=== PATIENT | male | born 1965 | race Two or more races ===

== ENCOUNTER → 2018-04-19 | Outpatient (CLI) | payer OTHER | END | disposition home or self-care (01) | LOC: SPEC 09:09 → EEVIPCON 09:09 | PROVIDERS: ATTEND Nurse Practitioner Family | DX: I26.92 Saddle embolus of pulmonary artery without acute cor pulmonale (principal) | CPT/HCPCS: 36415; 85610 ==

== ENCOUNTER → 2018-05-24 | Outpatient (CLI) | payer OTHER | END | disposition home or self-care (01) | LOC: SPEC 08:39 → EEVIPCON 08:39 | PROVIDERS: ATTEND Nurse Practitioner Family | DX: I26.92 Saddle embolus of pulmonary artery without acute cor pulmonale (principal) | CPT/HCPCS: 36415; 85610 ==

== ENCOUNTER → 2018-06-21 | Outpatient (CLI) | payer OTHER | END | disposition home or self-care (01) | LOC: SPEC 09:08 → EEVIPCON 09:08 | PROVIDERS: ATTEND Nurse Practitioner Family | DX: I26.92 Saddle embolus of pulmonary artery without acute cor pulmonale (principal) | CPT/HCPCS: 36415; 85610 ==

== ENCOUNTER → 2018-07-19 | Outpatient (CLI) | payer OTHER | END | disposition home or self-care (01) | LOC: EEVIPCON 09:05 → SPEC 09:05 | PROVIDERS: ATTEND Nurse Practitioner Family | DX: I26.92 Saddle embolus of pulmonary artery without acute cor pulmonale (principal) | CPT/HCPCS: 36415; 85610 ==

== ENCOUNTER → 2018-08-16 | Outpatient (CLI) | payer OTHER | END | disposition home or self-care (01) | LOC: EEVIPCON 09:32 → SPEC 09:32 | PROVIDERS: ATTEND Nurse Practitioner Family | DX: I26.92 Saddle embolus of pulmonary artery without acute cor pulmonale (principal) | CPT/HCPCS: 36415; 85610 ==

== ENCOUNTER → 2018-09-20 | Outpatient (CLI) | payer OTHER | END | disposition home or self-care (01) | LOC: SPEC 10:04 → EEVIPCON 10:04 | PROVIDERS: ATTEND Nurse Practitioner Family | DX: I26.92 Saddle embolus of pulmonary artery without acute cor pulmonale (principal) | CPT/HCPCS: 36415; 85610 ==

== ENCOUNTER → 2018-11-15 | Outpatient (CLI) | payer OTHER | END | disposition home or self-care (01) | LOC: SPEC 09:26 → EEVIPCON 09:26 | PROVIDERS: ATTEND Nurse Practitioner Family | DX: I26.92 Saddle embolus of pulmonary artery without acute cor pulmonale (principal) | CPT/HCPCS: 36415; 85610 ==